=== PATIENT | male | born 1965 | race Caucasian/White ===

== ENCOUNTER → 2020-08-15 | Outpatient (CLI) | payer OTHER ==
[~2020-08-15] VITALS: Ht 182 cm; Wt 116.0 kg
[~2020-08-15] MED LIST: CATHETER FLUSH 10 ML SYR IV PRN; DICL75TA2 PO; HYDR-3455 PO; OXYC-12 PO; PANT40TA2 PO; REGADENOSON 0.4 MG/5 ML SYR (LEXISCAN) IV ONE; SUCR1TAB36 PO
[2020-08-15 13:29] VITALS: BP 139/91
--- NOTE | 2020-08-20 11:15 | Cardiology Stress Test Report ---
Stress Test Report Date of Procedure/Referring: Date of Procedure: Aug 15, 2020 PCP Osman Biswas MD Admitting Physician Carlee Garcia DO Indications: Right bundle branch block Baseline Heart Rate: 72 Baseline Blood Pressure: Blood Pressure Systolic: 139 Blood Pressure Diastolic: 91 Baseline Vitals Vital Signs Date Time Temp Pulse Resp B/P (MAP) Pulse Ox O2 Delivery O2 Flow Rate FiO2 08/15/20 13:29 73 18 139/91 (107) 98 Room Air Baseline EKG: Baseline EKG: Right bundle-branch block Summary After explaining the procedure to the patient, he signed a consent and then brought to the stress nuclear laboratory. Patient received 0.4 mg Lexiscan for stress test, ECG, heart rate and blood pressure were monitored continuously. Resting and stress dose of radio tracer were injected, imaging was acquired and reviewed in short axis, horizontal long axis and vertical long axis views. TID: 1.05 SSS: 5 SDS: 2 EF: 56 1. Patient tolerated Lexiscan well 2. Baseline right bundle branch block persisted during test 3. Diaphragmatic attenuation with mild decreased uptake at the mid to apical inferior wall with no significant ischemia or infarction 3. Normal left ventricular size, EF 56 percent OSMAN BISWAS MD Aug 20, 2020 11:15
== END ==
LOC: CARD 12:00
PROVIDERS: ATTEND Internal Medicine Cardiovascular Disease
DX: I51.7 Cardiomegaly (principal); E66.9 Obesity, unspecified; R94.31 Abnormal electrocardiogram [ECG] [EKG]; Z72.0 Tobacco use
CPT/HCPCS: 78452; 93017; 93306; A9502

== ENCOUNTER 2023-02-11 05:42 | Outpatient (CLI) | payer OTHER ==
[~2023-02-11] VITALS: Ht 182.9 cm; Wt 120.5 kg
[~2023-02-11 05:42] MED LIST changes: -CATHETER FLUSH 10 ML SYR IV PRN; -REGADENOSON 0.4 MG/5 ML SYR (LEXISCAN) IV ONE
[2023-02-13] MEDS ORDERED: RT-ALBUINH INH (11:41)
[2023-02-13] MEDS ORDERED: ESCI-2 PO (11:41)
[2023-02-13] MEDS ORDERED: MELO15TA39 PO (11:41)
[2023-02-13] MEDS ORDERED: ATOR20TA66 PO (11:41)
== END 2023-02-13 11:43 | disposition home or self-care (01) ==
LOC: PREOP 05:42
PROVIDERS: ATTEND Surgery
DX: Z01.818 Encounter for other preprocedural examination (principal)

== ENCOUNTER 2023-02-24 07:28 | Day surgery (SDC) | payer OTHER ==
[~2023-02-24] VITALS: Ht 183 cm; Wt 120.5 kg
[~2023-02-24 07:28] MED LIST changes: +ATOR20TA66 PO; +ESCI-2 PO; +MELO15TA39 PO; +RT-ALBUINH INH
[2023-02-24] MEDS ORDERED: LACTATED RINGERS 1,000 ML IV STA (07:31)
[2023-02-24] MEDS ORDERED: PROPOFOL INJECTION 50 ML IV ONE (07:55)
[2023-02-24 07:57] VITALS: BP 129/89
--- NOTE | 2023-02-24 09:19 | Discharge Inst-Simple/Standard ---
Discharge Inst-Standard Reconcile Patient Problems Problems Reviewed?: Yes Patient Instructions/Follow Up Plan of Care/Instructions/FU: F/u with Dr. Lester in 2 weeks Activity as Tolerated: Yes Discharge Diet: No Restrictions, Regular Diet JAC LESTER DO Feb 24, 2023 09:19
[2023-02-24 09:20] VITALS: BP 127/76
--- NOTE | 2023-02-24 09:21 | Progress Note-Post Operative ---
Post-Operative Progess Note Surgeon (s)/Paramedic Instructor (s) Surgeon JAC EVANS DO Paramedic Instructor: n/a Pre-Operative Diagnosis history of colon polyps Post-Operative Diagnosis colon polyps, diverticulosis Procedure & Operative Findings Date of Procedure 02/24/23 Procedure Performed/Findings colonoscopy with hot biopsy polypectomy x5 Anesthesia Type per MDA Estimated Blood Loss Estimated blood loss (mL): none Specimens/Packing Specimens Removed colon polyps JAC EVANS DO Feb 24, 2023 09:21
[2023-02-24 09:25] VITALS: BP 115/72
[2023-02-24 09:38] VITALS: BP 115/72
--- NOTE | 2023-02-24 11:28 | Anesthesia-General Post-Op ---
MAC Patient Condition Mental Status/LOC: Same as Preop Cardiovascular: Satisfactory Nausea/Vomiting: Absent Respiratory: Satisfactory Pain: Controlled Complications: Absent Post Op Complications Complications None Follow Up Care/Instructions Patient Instructions None needed. Anesthesiology Discharge Order Discharge Order Patient was doing well this after the procedure with no complaints, stable vital signs, no apparent adverse anesthesia problems. No complications reported per nursing. MEERA GROVES DO Feb 24, 2023 11:28
--- NOTE | 2023-02-24 15:33 | OPERATIVE REPORT ---
DATE OF SERVICE: 02/24/2023 PREOPERATIVE DIAGNOSIS: History of polyps. POSTOPERATIVE DIAGNOSES: Colon polyps, diverticulosis. PROCEDURE: Colonoscopy with hot biopsy polypectomy x5. SURGEON: Jac Lester DO ANESTHESIA: Per MD. ESTIMATED BLOOD LOSS: None. COMPLICATIONS: None. INDICATIONS: The patient is a 57-year-old male with history of polyps. He understands risks and benefits of procedure and wished to proceed. Consent was signed in chart. DESCRIPTION OF PROCEDURE: The patient was taken to endoscopy suite, placed in left lateral recumbent position. Timeout was performed. Digital rectal exam was performed. No palpable polyps, masses or ulcerations. Scope was inserted in the rectum, advanced all the way to the cecum with minimal difficulty. Prep was adequate with irrigation and suction. Scope was then slowly retracted back. No polyps, masses or ulcerations in the cecum. In the ascending, polyp was present, which hot biopsy polypectomy was performed. Scope was then continuously retracted back. No polyps, masses or ulcerations in the remainder of the ascending, transverse colon, descending colon and a polyp was present, which hot biopsy polypectomy was performed. Scope was then continuously retracted back. Surgeon encountered some diverticulosis in the sigmoid colon. Also, 2 polyps within the sigmoid colon, which hot biopsy polypectomy was performed. Scope was then continuously retracted back into the rectum where another flat polyp was present, which hot biopsy polypectomy was performed. Scope was retroflexed in no other pathology. Scope was returned to its normal position, slowly withdrawn until completely removed. The patient tolerated the procedure well without complications, taken to recovery room in stable condition. RECOMMENDATIONS: Due to flat polyps and number of polyps, I would recommend repeat colonoscopy in 3 years. Any issues before that, be seen at that time. He will follow up on pathology in 2 weeks. Job ID: [id number] DocumentID: [id number] Dictated Date: 02/24/2023 09:22:04 [employer] Date: 02/24/2023 15:30:00 Dictated By: JAC LESTER DO
== END 2023-02-24 09:45 | disposition home or self-care (01) ==
LOC: ENDO 07:28
PROVIDERS: ATTEND Surgery
DX: Z12.11 Encounter for screening for malignant neoplasm of colon (principal); D12.2 Benign neoplasm of ascending colon; K63.5 Polyp of colon; K62.1 Rectal polyp; K57.30 Diverticulosis of large intestine without perforation or abscess without bleeding; E66.01 Morbid (severe) obesity due to excess calories; Z68.35 Body mass index [BMI] 35.0-35.9, adult; Z87.891 Personal history of nicotine dependence; Z28.310 Unvaccinated for COVID-19
CPT/HCPCS: 88305